=== PATIENT | male | born 1985 | race Two or more races ===

== ENCOUNTER 2016-06-12 08:20 | Inpatient (IN) | payer SELFPAY ==
[2016-06-12] MEDS ORDERED: NS 1000 ML 1,000 ML ONE ×3 (08:36→11:42)
[2016-06-12] MEDS: NS 1000 ML 1,000 ML IV ONE ×2 (08:45→14:00)
--- NOTE | 2016-06-12 08:56 | DR.GENAD ---
HPI - Complaint/Symptoms Chief Complaint Doctors Comments: Patient presents to the ED with complaint of right chest wall pain and swelling of right upper extremity of 2-3 days duration. He also has a papular soft hyperpigmented circular lesion on volar surface of right distal forearm. He denies vomiting, diarrhea or fever. - Nurses notes reviewed Nurses Notes Review: Yes PMH - PMH Past Medical History: Diabetes Past Surgical History: No Surgical History: Unknown - Family History Family Medical History: Diabetes Mellitus - Social History Do you use any recreational Drugs:: Yes (thc) ROS - Review of Systems Constitutional: No Symptoms Reported Eyes: No Symptoms Reported ENTM: No Symptoms Reported Respiratoy: No Symptoms Reported Cardiovascular: Chest Pain (right chest wall pain), Palpitations Gastrointestinal/Abdominal: No Symptoms Reported Genitourinary: No Symptoms Reported Neurological: No Symptoms Reported Musculoskeletal: Chest wall (right chest wall pain), Arm (edematous of right upper extremity), Hand (edematous right) Integumentary: Change in Color (right chest wall erythematous), Lesions (volar surface on distal right upper extremtiy) Hematologic/Lymphatic: No Symptoms Reported Endocrine: No Symptoms Reported Psychiatric: No Symptoms Reported All Other Systems: Reviewed and Negative PE - Vital Signs Vitals: Temperature 98.0 F Pulse Rate [Left Brachial] 125 Pulse Rate 136 Respiratory Rate 20 Blood Pressure [Right Arm] 91/67 Blood Pressure 84/62 O2 Sat by Pulse Oximetry 100 - General Limitations: Language Barrier General Appearance: Alert, In No Apparent Distress - Head Head Exam: Normal Inspection, Atraumatic - Eyes Eye exam: Normal Appearance, PERRL, EOMI - ENT ENT Exam: Normal Exam External Ear Exam: Normal External Inspection TM/Canal Exam: Bilateral Normal Nose Exam: Normal Nose Exam Mouth Exam: Normal Inspection Throat Exam: Normal Inspection - Neck Neck Exam: Normal Inspection - Chest Chest Inspection: Normal Inspection - Respiratory Respiratory Exam: Normal Lung Sounds Bilat Respiratory Exam: Bilateral Clear to Auscultation - Cardiovascular Cardiovascular Exam: Tachycardia - Abdominal Exam Abdominal Exam: Normal Inspection Abdominal Tenderness: negative: RUQ, RLQ, LUQ, LLQ, Epigastrium, Suprapubic, Diffuse, Mild, Moderate, Severe, Other - Extremities Extremities Exam: Tenderness (right upper extremity), Edema (right upper extremity) - Back Back Exam: Normal Inspection - Neurologic Neurological Exam: Alert, Oriented X3, CN II-XII Intact - Psychiatric Psychiatric Exam: Normal Affect - Skin Skin Exam: Warm, Dry, Erythema. negative: Normal Color (erythema of chest wall) Course - Reevaluation 1st: Improved - Consultation Called: 23:00 (Admit for further evaluatin and treatment) ROR - Labs Reviewed Laboratory Results Reviewed?: Yes (low sod, elevated glucose) Result Diagrams: 06/12/16 09:10 06/12/16 09:10 Laboratory: WBC 19.0 X10^3/uL (3.6-10.0) H 06/12/16 09:10 RBC 4.63 X10^6/uL (4.7-6.0) L 06/12/16 09:10 Hgb 14.8 g/dL (13.5-18.0) 06/12/16 09:10 Hct 44.1 % (42.0-54.0) 06/12/16 09:10 MCV 95.2 fL (80.0-100.0) 06/12/16 09:10 MCH 32.0 pg (27.0-34.0) 06/12/16 09:10 MCHC 33.6 g/dL (33.0-35.0) 06/12/16 09:10 RDW 12.6 % (11.6-16.5) 06/12/16 09:10 Plt Count 360 X10^3/uL (150.0-450.0) 06/12/16 09:10 Plt Count Comment Adequate (ADEQUATE) 06/12/16 09:10 MPV 8.8 fL (7.4-11.0) 06/12/16 09:10 Neut % 96.3 % (42.0-75.0) H 06/12/16 09:10 Lymph % 1.5 % (21.0-51.0) L 06/12/16 09:10 [place] % 0.7 % (0.0-13.0) 06/12/16 09:10 Eos % 1.2 % (0.9-2.9) 06/12/16 09:10 Baso % 0.3 % (0.2-1.0) 06/12/16 09:10 Neut # 18.3 x10^3/uL (2.2-4.8) H 06/12/16 09:10 Lymph # 0.3 X10^3/uL (1.3-2.9) L 06/12/16 09:10 [place] # 0.1 x10^3/uL (0.3-0.8) L 06/12/16 09:10 Eos # 0.2 x10^3/uL (0.0-0.2) 06/12/16 09:10 Baso # 0.0 X10^3/uL (0.0-0.1) 06/12/16 09:10 Absolute Nucleated RBC 0.0 /100WBC 06/12/16 09:10 Total Counted 100 06/12/16 09:10 Neutrophils % (Manual) 77 % (39-76) H 06/12/16 09:10 Band Neutrophils % 12 % (0-10) H 06/12/16 09:10 Lymphocytes % (Manual) 4 % (13-43) L 06/12/16 09:10 Monocytes % (Manual) 4 % (4-9) 06/12/16 09:10 Eosinophils % (Manual) 1 % (0-6) 06/12/16 09:10 Metamyelocytes % 2 06/12/16 09:10 Plt Morphology Comment Normal (NORMAL) 06/12/16 09:10 RBC Morphology Normal (NORMAL) 06/12/16 09:10 Sample Site Rrad 06/12/16 10:17 ABG pH 7.360 (7.35-7.45) 06/12/16 10:17 ABG pCO2 32.0 mmHg (35.0-45.0) L 06/12/16 10:17 ABG pO2 93.0 mmHg (80.0-100.0) 06/12/16 10:17 ABG HCO3 18.1 mmol/L (22-26) L 06/12/16 10:17 ABG O2 Saturation 97.0 % (90-100) 06/12/16 10:17 ABG Base Excess -6.4 mmol/L (-2.0-2.0) L 06/12/16 10:17 Moe Test Pos 06/12/16 10:17 A-a Gradient 17.0 mmHg 06/12/16 10:17 FiO2 21 06/12/16 10:17 Blood Gas Comments Thao-sd 06/12/16 10:17 Sodium 118 mmol/L (136-145) L* 06/12/16 09:10 Corrected Sodium 131 mmol/L (136-145) L 06/12/16 09:10 Potassium 4.7 mmol/L (3.5-5.1) 06/12/16 09:10 Chloride 82 mmol/L (98-107) L 06/12/16 09:10 Carbon Dioxide 20.2 mmol/L (21-32) L 06/12/16 09:10 BUN 34 mg/dL (7-18) H 06/12/16 09:10 Creatinine 1.61 mg/dL (0.70-1.30) H 06/12/16 09:10 Est GFR (MDRD) Af Amer > 60 (>60) 06/12/16 09:10 Est GFR (MDRD) Non-Af 54 (>60) L 06/12/16 09:10 Glucose 646 mg/dL (65-99) H* 06/12/16 09:10 Lactic Acid 2.5 mmol/L (0.4-2.0) H 06/12/16 10:50 Calcium 8.4 mg/dL (8.5-10.1) L 06/12/16 09:10 Corrected Calcium 10.0 mg/dL (8.5-10.1) 06/12/16 09:10 Total Bilirubin 1.20 mg/dL (0.2-1.0) H 06/12/16 09:10 AST 227 Units/L (15-37) H 06/12/16 09:10 ALT 91 Units/L (12-78) H 06/12/16 09:10 Alkaline Phosphatase 150 Units/L (46-116) H 06/12/16 09:10 Lactate Dehydrogenase 563 Units/L (85-227) H 06/12/16 09:10 C-Reactive Protein > 250.00 mg/L (0-3.0) H 06/12/16 09:10 Total Protein 6.5 g/dL (6.4-8.2) 06/12/16 09:10 Albumin 2.0 g/dL (3.4-5.0) L 06/12/16 09:10 Globulin 4.5 g/dL (2.5-4.5) 06/12/16 09:10 Albumin/Globulin Ratio 0.4 Ratio (1.1-2.1) L 06/12/16 09:10 Amylase 7 Units/L (25-115) L 06/12/16 09:10 Lipase 49 Units/L (73-393) L 06/12/16 09:10 - XRAY XRAY Interpreted by: Radiologist (Chest negative) - Diagnosis Discharge Problem: Sepsis associated hypotension, Hyperglycemia without ketosis - Discharge Plan Condition: Stable - Follow ups/Referrals Follow ups/Referrals: [facility],None [Primary Care Provider] - 3 days - Instructions
[2016-06-12] MEDS ORDERED: ZOSYN VIAL 3.375 GM 3.375 GM in NS 100 ML IV + SPIKE MINIBAG* 100 ML IV ONE (09:24)
[2016-06-12 09:25] LABS: BASOPHILS % (AUTO) 0.3 % (0.2-1.0); EOSINOPHILS # (AUTO) 0.2 x10^3/uL (0.0-0.2); EOSINOPHILS % (AUTO) 1.2 % (0.9-2.9); HEMATOCRIT 44.1 % (42.0-54.0); HEMOGLOBIN 14.8 g/dL (13.5-18.0); LYMPHOCYTES # (AUTO) 0.3 X10^3/uL (1.3-2.9); LYMPHOCYTES % (AUTO) 1.5 % (21.0-51.0); MEAN CORPUSCULAR HGB CONC 33.6 g/dL (33.0-35.0); MEAN CORPUSCULAR VOLUME 95.2 fL (80.0-100.0); MEAN PLATELET VOLUME 8.8 fL (7.4-11.0); MONOCYTES # (AUTO) 0.1 x10^3/uL (0.3-0.8); MONOCYTES % (AUTO) 0.7 % (0.0-13.0); NEUTROPHILS # (AUTO) 18.3 x10^3/uL (2.2-4.8); NEUTROPHILS % (AUTO) 96.3 % (42.0-75.0); PLATELET COUNT 360 X10^3/uL (150.0-450.0); RED BLOOD COUNT 4.63 X10^6/uL (4.7-6.0); RED CELL DISTRIBUTION WIDTH 12.6 % (11.6-16.5)
[2016-06-12] MEDS ORDERED: ZOSYN VIAL 3.375 GM IV ONE (09:28)
[2016-06-12] MEDS ORDERED: NS 100 ML IV 100 ML IV ONE ×2 (09:28→12:30)
[2016-06-12] MEDS ORDERED: BENADRYL INJ 50 MG VIAL IM ONE (09:30)
--- NOTE | 2016-06-12 09:30 | RAD ---
Examination: Chest x-ray. Clinical History: Fever. Bit by insect, right arm and right chest wall edema. Technique: PA and lateral views of the chest were obtained. Comparison: None available. Findings: The chest is rotated. The cardiac and mediastinal contours are within normal limits. No pneumothorax or pleural effusion is noted. The lungs are mildly hypoventilated, but appear clear. No acute osseous abnormality is noted. Impression: 1. No acute disease. Reported By:
[2016-06-12 09:32] LABS: AMYLASE 7 Units/L (25-115); LIPASE 49 Units/L (73-393)
[2016-06-12] MEDS ORDERED: BENADRYL INJ 50 MG VIAL ONE (09:37)
[2016-06-12 09:40] LABS: ALANINE AMINOTRANSFERASE 91 Units/L (12-78); ALKALINE PHOSPHATASE 150 Units/L (46-116); ASPARTATE AMINO TRANSFERASE 227 Units/L (15-37); BLOOD UREA NITROGEN 34 mg/dL (7-18); C-REACTIVE PROTEIN > 250.00 mg/L (0-3.0); CALCIUM 8.4 mg/dL (8.5-10.1); CARBON DIOXIDE 20.2 mmol/L (21-32); CHLORIDE 82 mmol/L (98-107); CREATININE 1.61 mg/dL (0.70-1.30); LACTATE DEHYDROGENASE 563 Units/L (85-227); TOTAL PROTEIN 6.5 g/dL (6.4-8.2); eGFR BLACK RACES > 60 (>60); eGFR NON BLACK RACES 54 (>60)
[2016-06-12 09:50] LABS: BAND NEUTROPHILS % 12 % (0-10); METAMYELOCYTES % 2; PLATELET MORPHOLOGY COMMENT NORMAL (NORMAL)
[2016-06-12 09:57] LABS: SODIUM 118 mmol/L (136-145)
[2016-06-12 09:59] LABS: COR NA(FOR HYPERGLY) 131 mmol/L (136-145); GLUCOSE 646 mg/dL (65-99)
[2016-06-12] MEDS ORDERED: NS 1000 ML 1,000 ML IV ONE (10:06)
[2016-06-12 10:34] LABS: ABG ALLEN TEST POS; ABG BASE EXCESS -6.4 mmol/L (-2.0-2.0); ABG HCO3 18.1 mmol/L (22-26); FRACTIONATED INSPIRED OXYGEN 21
[2016-06-12] MEDS ORDERED: DOPAMINE IV PREMIX 400 MG 400 MG/250 ML BAG IV ONE ×2 (11:09→11:16)
[2016-06-12] MEDS ORDERED: NS 1000 ML 1,000 ML IV SCH (12:00)
[2016-06-12] MEDS ORDERED: HUMULIN R SUBCUT PRN (12:24)
[2016-06-12] MEDS ORDERED: HUMULIN R 100 UNITS in NS 100 ML IV 100 ML IV PRN ×2 (12:27→12:42)
[2016-06-12] MEDS ORDERED: NS 50 ML IV 50 ML IV ONE (12:29)
[2016-06-12] MEDS ORDERED: VANCOMYCIN 1 GM PREMIX (ADDVANTAGE) 250 ML IV ONE (12:58)
[2016-06-12] MEDS ORDERED: VANCOMYCIN HCL 1 GM VIAL IV SCH ×2 (13:00→21:00)
[2016-06-12] MEDS ORDERED: SOLU CORTEF IVP SCH (13:00)
[2016-06-12] MEDS ORDERED: PHARMACY CONSULT - VANCOMYCIN XX SCH (13:00)
[2016-06-12] MEDS ORDERED: ZOSYN VIAL 3.375 GM 3.375 GM in NS 100 ML IV + SPIKE MINIBAG* 100 ML IV SCH (14:00)
[2016-06-12 15:23] LABS: CALCIUM 7.8 mg/dL (8.5-10.1); CARBON DIOXIDE 19.6 mmol/L (21-32); CREATININE 1.79 mg/dL (0.70-1.30)
[2016-06-12 15:28] LABS: ALBUMIN 1.3 g/dL (3.4-5.0); TOTAL PROTEIN 5.9 g/dL (6.4-8.2)
[2016-06-12 16:04] LABS: BILIRUBIN,URINE NEGATIVE (NEGATIVE); BLOOD/HEMOGLOBIN,URINE 5+ (NEGATIVE); GLUCOSE, URINE 4+ (NEGATIVE); KETONES,URINE NEGATIVE (NEGATIVE); LEUKOCYTE ESTERASE ,URINE NEGATIVE (NEGATIVE); NITRITES,URINE NEGATIVE (NEGATIVE); PROTEIN,URINE 2+ (NEGATIVE); UROBILINOGEN,URINE NORMAL (NORMAL)
[2016-06-12 16:17] LABS: AMORPHOUS SEDIMENT,UR 2+ /HPF (NEGATIVE); APPEARANCE,URINE CLEAR (CLEAR); BACTERIA,URINE 1+ /HPF (NEGATIVE); COLOR,URINE DARK YELLOW (YELLOW); SQUAMOUS EPITHELIAL CELL,UR FEW /HPF (NEGATIVE)
[2016-06-12 16:21] VITALS: BMI 22.4
[2016-06-12 17:46] VITALS: BP 98/53
[2016-06-12] MEDS ORDERED: SNACK - Diabetic Appropriate PO SCH ×2 (20:00)
== END 2016-06-12 18:06 | disposition short-term general hospital (02) | DRG 871 ==
LOC: ER 08:39 → ICU 12:00
PROVIDERS: ADMIT Obstetrics & Gynecology Obstetrics; ATTEND Obstetrics & Gynecology Obstetrics
DX: A41.89 Other specified sepsis (principal); R07.89 Other chest pain; E11.65 Type 2 diabetes mellitus with hyperglycemia; E87.0 Hyperosmolality and hypernatremia; R53.1 Weakness; M79.601 Pain in right arm; M79.89 Other specified soft tissue disorders; M72.6 Necrotizing fasciitis; B95.0 Streptococcus, group A, as the cause of diseases classified elsewhere
CPT/HCPCS: 36415; 36600; 71020; 80053; 81001; 82150; 82803; 82947; 83605; 83615; 83690; 85025; 85610; 85730; 86140; 87040; 87070; 87075; 87077; 87186; 87205; 93005; 93010; 96365; 96367; 96372; 96374; 96375; 99284; 99285; A4222; J1200; J1265; J2543; J3370